=== PATIENT | female | born 1980 | race Caucasian/White ===

== ENCOUNTER → 2024-04-16 14:09 | Outpatient (CLI) | payer OTHER, SELFPAY ==
--- NOTE | 2024-04-16 14:12 | DI.MRI.S_ITS ---
PROCEDURE: MR FOOT LT WO/W CON INDICATIONS: PAIN IN LEFT FOOT TECHNIQUE: Multiphasic, multisequence MRI of the forefoot was performed, before and after intravenous contrast administration. COMPARISON: [facility] [place], [place], XR FOOT 3+ VIEWS LEFT, 03/22/2024, 12:49. FINDINGS: Image quality: Excellent. Bones and joints: Susceptibility artifact about the 1st and 2nd distal phalangeal tuft, nonspecific. No suspicious osseous enhancement. No bone marrow contusions or metatarsal stress fractures. The sesamoid bones appear in expected positions, without internal edema. No metatarsophalangeal joint degeneration. No intraosseous lesions. Soft tissues: Moderate amount of fluid at the master knot of Jey. The flexor tendons are otherwise unremarkable. The extensor tendons are unremarkable. Mild subcutaneous edema in the dorsal lateral foot. Mild 1st and 3rd intermetatarsal bursitis. No Fernandez's neuroma. The Lisfranc ligament is intact. The plantar fascia is unremarkable. No suspicious enhancing soft tissue lesion. IMPRESSION: 1. Susceptibility artifact about the 1st and 2nd distal phalangeal tuft. 2. Moderate amount of fluid at the master knot of Jey. 3. Mild subcutaneous edema in the dorsal lateral foot. 4. Mild 1st and 3rd intermetatarsal bursitis. Dictated by: Arline Arreguin M.D. on 04/17/2024 at 15:49 Approved by: Arline Arreguin M.D. on 04/17/2024 at 15:58
== END ==
LOC: MRI 14:11
PROVIDERS: PCP Family Medicine; Referring Provider Podiatrist; Visit Provider Podiatrist
DX: M71.572 Other bursitis, not elsewhere classified, left ankle and foot (principal); M25.475 Effusion, left foot; M79.672 Pain in left foot
CPT/HCPCS: 73720; A9579

== ENCOUNTER → 2024-08-06 14:47 | Outpatient (CLI) | payer OTHER, SELFPAY ==
--- NOTE | 2024-08-06 14:49 | DI.MRI.S_ITS ---
PROCEDURE: MR ANKLE LT WO CON INDICATIONS: LEFT ANKLE TENDINITIS TECHNIQUE: Noncontrast sagittal T1 spin echo and T2 fast spin echo with fat saturation, axial proton density fast spin echo and T2 fast spin echo with fat saturation, coronal T1 spin echo and T2 fast spin echo with fat saturation through the ankle/hindfoot. COMPARISON: None. FINDINGS: Image quality: Excellent. Bones and joints: No bone marrow contusions or fractures. No hindfoot coalitions. No osteochondral injuries of the talar dome. Trace tibiotalar joint effusion, no loose bodies. Medial structures: The posterior tibialis, flexor digitorum longus, and flexor hallucis longus tendons are intact. Fluid distending flexor tendon sheath is seen most notably involving flexor hallucis longus tendon at the level of subtalar joint extending to the level of navicular cuneiform joints. The posterior tibial neurovascular bundle appears normal within the tarsal tunnel, without extrinsic mass effect. The deltoid ligament and spring ligament are intact. Lateral structures: The anterior talofibular ligament is thickened with intrasubstance T2 hyperintense signal. The calcaneofibular, and posterior talofibular ligaments appear intact. More superiorly, the anterior and posterior tibiofibular ligaments appear intact, as is the intermalleolar ligament. The tibiofibular syndesmosis is normal in width at 2 mm or less. The peroneus longus and brevis tendons are thickened at the level of lateral malleolus tip extending to the level of calcaneocuboid joint.. No signal abnormality is seen within the sinus tarsi. Anterior structures: The tibialis anterior, extensor hallucis longus, and extensor digitorum longus tendons appear intact. The dorsal talonavicular ligament appears intact. Posterior and plantar structures: Achilles tendon is mildly thickened near its posterior calcaneal insertion with mild surrounding edema. No full-thickness Achilles tendon rupture. Medial and lateral bands of the plantar fascia are of normal thickness. No abductor digiti quinti muscle atrophy to suggest Claudio neuropathy. IMPRESSION: 1. No marrow edema. No fracture or dislocation. No evidence of osteochondral injuries of talar dome. Small joint effusion, no loose bodies. 2. Low-grade tenosynovitis involving flexor tendons particularly involving flexor hallucis longus tendon at the level of subtalar joint extending to the level of navicular cuneiform joints. 3. Mild tendinosis involving peroneus tendons at the level of lateral malleolus tip extending to the level of calcaneocuboid joint. 4. Low-grade ATFL sprain/intrasubstance partial-thickness tear. Rest of the ankle ligaments are intact. 5. Distal Achilles tendinosis at its posterior calcaneal insertion. No Achilles tendon rupture. Dictated by: Sadi Skaggs M.D. on 08/07/2024 at 8:52 Approved by: Sadi Skaggs M.D. on 08/07/2024 at 8:57
== END ==
PROVIDERS: PCP Family Medicine; Referring Provider Orthopaedic Surgery Foot and Ankle Surgery; Visit Provider Orthopaedic Surgery Foot and Ankle Surgery
DX: S93.492A Sprain of other ligament of left ankle, initial encounter (principal); M77.52 Other enthesopathy of left foot and ankle; M25.475 Effusion, left foot; M65.972 Unspecified synovitis and tenosynovitis, left ankle and foot
CPT/HCPCS: 73721